=== PATIENT | male | born 1930 | race Caucasian/White ===

== ENCOUNTER → 2016-07-17 | Day surgery (SDC) | payer MEDICARE, OTHER ==
[~2016-07-17] MED LIST: AMARYL PO; ASPIRIN EC81 M1 PO; CLOPIDOGREL75 MG PO; HYDROCODON-ACE1 EAC7 PO; IRON325 ( 65 ) PO; ISOSORBIDE DINI30 MG PO; LUMIGAN2.5 ML OU; METFORMIN HCL1000 M1 PO; METOPROLOL SUCC25 MG PO; MULTI VITAMIN1 EACH PO; POTASSIUM99 M1 PO; PRAVASTATIN SOD40 MG PO; VITAMIN B-1250 MCG
[2016-07-17 08:32] LABS: BASOPHIL# 0.1 X10e3 (0-0.3); BASOPHIL% 1.3 % (0-2.5); EOSINOPHIL# 0.1 X10e3 (0-0.7); EOSINOPHIL% 1.8 % (0.0-7.0); HEMATOCRIT 34.9 % (38.0-50.0); HEMOGLOBIN 11.6 gm/dL (13.0-16.0); LYMPHOCYTE# 1.4 X10e3 (1.0-3.5); LYMPHOCYTE% 23.6 % (17.0-45.0); MEAN CELL VOLUME 93.9 FL (83-96); MEAN CORPUSCULAR HEMOGLOBIN 31.1 PG (28-34); MEAN CORPUSCULAR HGB CONC 33.1 g/dL (30-36); MEAN PLATELET VOLUME 9.9 FL (6.5-11.5); MONOCYTE# 1.2 X10e3 (0-1.0); MONOCYTE% 19.7 % (3.0-12.0); NEUTROPHIL# 3.2 X10e3 (1.5-7.1); NEUTROPHIL% 53.6 % (40-75); PLATELET COUNT 145 X10e3 (140-420); RED BLOOD COUNT 3.72 X10e (3.90-5.60); RED CELL DISTRIBUTION WIDTH 15.6 % (11.0-15.5)
[2016-07-17 08:34] LABS: DIFF IND NO
[2016-07-17 09:08] LABS: BUN/CREATININE RATIO 20.83; CALCIUM SERUM 9.1 mg/dL (8.4-10.2); CREATININE SERUM 1.2 mg/dL (0.6-1.4); GLOM FILT RATE Estimated 54.8 mL/min (>60)
== END | disposition home or self-care (01) ==
LOC: CSUR 07:40
PROVIDERS: Urology
DX: C67.9 Malignant neoplasm of bladder, unspecified (principal); E11.9 Type 2 diabetes mellitus without complications; I25.2 Old myocardial infarction; M19.90 Unspecified osteoarthritis, unspecified site; Z79.82 Long term (current) use of aspirin; Z79.899 Other long term (current) drug therapy; Z95.0 Presence of cardiac pacemaker; Z95.1 Presence of aortocoronary bypass graft; Z90.79 Acquired absence of other genital organ(s); Z98.41 Cataract extraction status, right eye; Z98.42 Cataract extraction status, left eye; Z98.890 Other specified postprocedural states
CPT/HCPCS: 80048; 82947; 85025; 88305; J0690; J2405; J3010; J3490

== ENCOUNTER 2016-07-18 06:50 | Emergency (ER) | payer MEDICARE, OTHER ==
--- NOTE | ~2016-07-18 | OR ---
Unit #: [id number] #: [id number] Patient: WILFRIDO BARON JR [id number] [address] [place], [place] [address] [id number] MR#: [id number] NAME: WILFRIDO BARON JR ROOM: Date of Procedure: 07/17/2016 Admission Date: 07/18/2016 Surgeon: Espinoza Sal M.D. : 1930 Attending Physician: Joseline Steele M.D. Primary Care Physician: Sree Benitez M.D. OPERATIVE REPORT PREOPERATIVE DIAGNOSIS Small bladder tumor. POSTOPERATIVE DIAGNOSIS Small bladder tumor. PROCEDURE PERFORMED Cystoscopy with transurethral resection of bladder tumor, small. ANESTHESIA General. INDICATIONS FOR PROCEDURE This 86-year-old man on hematuria evaluation was noted to have a questionable lesion on CT, which is a small bladder tumor by office cystoscopy. He returns for its resection. DESCRIPTION OF PROCEDURE The patient was given preoperative antibiotics and satisfactory general anesthesia. In the dorsal lithotomy position, routine prep and drape were performed. The 21-Emirati rigid cystoscope was introduced with a 30-degree lens and video, confirming previous findings. There was a small bladder tumor on the left trigonal ridge with a tiny tumor distally nearby. There were no other lesions in the bladder. The 24-Emirati resectoscope was easily placed in and used with the cutting loop to resect the main tumor and also the smaller one and these were submitted as specimen. A 3 mm rollerball was used to fulgurate a fairly good margin, certainly at least the size of a quarter given some mild mucosal changes in the neighborhood, suggestive of the need for a wide margin. There was excellent hemostasis. The bladder was drained. The cystoscope removed and a Uro-jet applied. He will be given a one week followup for results. Dictated by... Rosanna Jones/berta TD: 07/18/2016 02:40 JOB #: [id number] Unit #: [id number] #: [id number] Patient: WILFRIDO BARON JR CC: Eliceo Marie M.D. OPERATIVE REPORT Page 1 of 1 X Espinoza Sal MD PROCEDURE OPERATIVE NOTE
[2016-07-18 06:15] LABS: URINE SOURCE CLEAN CATCH
[2016-07-18 06:18] LABS: URINE APPEARANCE CLOUDY; URINE BILIRUBIN NEG (NEG); URINE BLOOD 3+ (NEG); URINE COLOR YELLOW; URINE GLUCOSE NEG (NEG); URINE KETONE NEG (NEG); URINE LEUKOCYTE ESTERASE TRACE (NEG); URINE NITRATE NEG (NEG); URINE PH 6.5 (5-8); URINE PROTEIN 1+ (NEG); URINE SPECIFIC GRAVITY 1.011 (1.003-1.035); URINE UROBILINOGEN 0.2 MG/DL (NEG)
[2016-07-18 06:21] LABS: CULTURE INDICATED? YES; URBCS1 AUWI INNUM /[HPF] (0-2); URINE BACTERIA AUWI NEG (NEGATIVE); URINE SQUAMOUS EPITHELIAL CELL NONE SEEN /[HPF]
== END 2016-07-18 07:05 | disposition home or self-care (01) ==
LOC: CED 06:50
PROVIDERS: Emergency Medicine
DX: R33.9 Retention of urine, unspecified (principal); I25.10 Atherosclerotic heart disease of native coronary artery without angina pectoris; I10 Essential (primary) hypertension; Z90.79 Acquired absence of other genital organ(s); C67.9 Malignant neoplasm of bladder, unspecified; Z79.899 Other long term (current) drug therapy
CPT/HCPCS: 51702; 81003; 87086; 99284